=== PATIENT | male | born 1980 | race Caucasian/White ===

== ENCOUNTER 2017-03-25 07:24 | Emergency (ER) | payer OTHER ==
[~2017-03-25] VITALS: Ht 190.5 cm; Wt 136.1 kg
[~2017-03-25 07:24] MED LIST: ACCUNEB SO1.25 MG/1; AMBIEN 10 MG TA10 MG PO; ASPIR 8181 MG PO; CYCLOBENZAPRINE5 MG PO; IBUPROFEN 600600 M1 PO; LEXAPRO20 MG PO; LISINOPRIL10 MG PO; NOHOMEMEDICATIONS; NORCO 5-325 TA1 EACH PO; PHENERGAN 25 MG25 M1 PO; PREDNISONE 20 M20 M1 PO; PREDNISONE50 MG PO; PREVACID 30MG C30 M1 PO; PRILOSEC40 MG PO; PRINIVIL20 MG PO; SINGULAIR 10 MG10 M1 PO; TOPROL XL25 MG PO; TRAZODONE HCL100 MG PO; TRIAMCINOLONE A15 G1 TP; ULTRAM 50MG TAB50 MG PO; VENTOLIN HFA 1818 GM INH; ZANTAC 150MG T150 M1 PO; ZANTAC 150MG T150 MG PO; ZOFRAN ODT4 MG PO; ZPAK PO
[2017-03-25 07:40] VITALS: BP 140/90
== END 2017-03-25 08:01 | disposition home or self-care (01) ==
LOC: ER 07:24
DX: M77.11 Lateral epicondylitis, right elbow (principal); I10 Essential (primary) hypertension; J45.909 Unspecified asthma, uncomplicated; F17.210 Nicotine dependence, cigarettes, uncomplicated; Z88.5 Allergy status to narcotic agent

== ENCOUNTER 2018-02-27 05:28 | Day surgery (SDC) | payer OTHER ==
[~2018-02-27] VITALS: Ht 190.5 cm; Wt 135.2 kg
--- NOTE | ~2018-02-27 | O ---
[facility] [place] [address] OPERATIVE REPORT Name: ELMER GARZA Room #: 150-4 [facility] M.R.#: [id number] Admission: 02/27/18 Attend Phys: Kaushik Chavis MD Discharge: Date of : 80 Report #: [id number] THIS REPORT FOR: //name// CC: Anais Chavis DATE OF SERVICE: 02/27/2018 PREOPERATIVE DIAGNOSES: Deviated nasal septum with nasal airway obstruction, chronic tonsillitis with tonsillar hypertrophy, obstructive sleep apnea. POSTOPERATIVE DIAGNOSES: Deviated nasal septum with nasal airway obstruction, chronic tonsillitis with tonsillar hypertrophy, obstructive sleep apnea. OPERATIVE PROCEDURE: Nasal septoplasty and tonsillectomy. ANESTHESIA: General endotracheal. DESCRIPTION OF PROCEDURE: The patient was taken to the operating room and placed in supine position. General anesthesia was induced by endotracheal intubation. Once adequate general anesthesia was obtained, local nasal anesthesia was induced by submucoperichondrial injection of 1% lidocaine with 1:100,000 epinephrine and topical application of cocaine solution. The patient was then draped in a sterile manner. The patient had a nasal septal deviation anteriorly to the right and into the inferior meatus on the left. A hemitransfixion incision was placed on the right side of the nose and the mucoperichondrium and mucoperiosteum elevated off the septum. The cartilage was incised in front of the bony cartilaginous junction, and a portion of cartilage and bone was removed from the midportion of the septum. There was a large septal spur along the floor in the inferior meatus on the left side consisting of hypertrophic cartilage and a fracture of the maxillary crest. The cartilage was removed as a long strip, and the maxillary crest was infractured. After these maneuvers, the septum sat more in the midline. A hemitransfixion incision was then closed with 4-0 chromic suture and a 4-0 plain mattress suture was placed as well. A Miguel-John mouth gag was placed in the patient's mouth and tongue was deviated upward. The right tonsil was grasped and deviated towards midline. An incision was placed in the anterior tonsillar pillar using the Bovie electrocautery and a plane between tonsillar capsule and tonsillar fossa was established. Dissection was carried out in this plane using the Bovie and hemostasis was achieved during the dissection. Dissection was carried out from superior to inferior. The inferior pole was incised. The posterior tonsillar mucosa was incised. The tonsil was removed and sent to pathology. The left tonsil was removed in exactly the same manner. The area was then irrigated with normal saline. Hemostasis was verified in the tonsillar beds. The mouth gag was removed. The patient tolerated the procedure well. Blood loss of both [address] [address] OPERATIVE REPORT Name: ELMER GARZA Room #: 150-4 [facility] M.R.#: [id number] Admission: 02/27/18 Attend Phys: Kaushik Chavis MD Discharge: Date of : 80 Report #: [id number] procedures was approximately 20 mL. The patient was then awoken and taken to the recovery room in stable condition for postoperative monitoring. By: [id number] Kaushik Chavis MD /nt
--- NOTE | ~2018-02-27 | EKG ---
[address] [place] [address] ELECTROCARDIOGRAM REPORT Name: ELMER GARZA Room #: 150-4 [facility]..#: [id number] Admission: 02/27/18 Attend Phys: Kaushik Chavis MD Discharge: Date of : 80 Report #: [id number] THIS REPORT FOR: //name// [facility] Test Date: 2018-02-27 Test Time: 06:30:48 Pat Name: ELMER GARZA Department: Room: 150 4 Gender: M Strategy Manager: ROSALVA : 1980 Requested By: Kaushik Chavis Order Number: [id number] MD: Dennis Capellan Measurements Intervals [place] Rate: 64 P: 43 DC: 146 QRS: 37 QRSD: 111 T: 38 QT: 403 QTc: 416 Interpretive Statements Sinus rhythm RSR' in V1 or V2, right VCD Compared to ECG 12/01/2014 05:21:18 no significant change was found Electronically Signed On 02-27-2018 7:56:01 CDT by Dennis Capellan [email or web address] <ELECTRONICALLY SIGNED> By: Dennis Capellan MD, [facility] 02/27/18 0756 D: [id number] 9 Dennis Capellan MD, [facility] /EPI
--- NOTE | ~2018-02-27 | PATH ---
[facility] [address] [address] [place] [address] PATHOLOGY RPT PROCEDURE Name: ELMER BLANCAS Room #: DEP [facility] M.R.#: [id number] Admission: 02/27/18 Date of : 80 Discharge: 02/27/18 Report #: [id number] Path Case #: [id number] [facility] Accession Number: [id number] . 01 Material submitted: . PART A: RIGHT TONISL PART B: LEFT TONSIL . 01 Clinical history: . Deviated septum, hypertrophy of tonsils . 02 Diagnosis: A. Tonsil, right: - Tonsillar tissue with lymphoid hyperplasia. . B. Tonsil, left: - Tonsillar tissue with lymphoid hyperplasia. . (MAP:[facility]; 02/28/2018) [facility]/02/28/2018 . 02 Electronically signed: . Dhiraj Pierce MD, Pathologist NPI- [id number] . 01 Gross description: . A.Received in formalin labeled "Elmer Blancas, right tonsil," is a tonsil measuring 3.4 x 1.9 x 1.9 cm in maximum dimensions. The mucosal surfaces are tinajero with the typical crypts identified. Sectioning reveals lobulated, homogenous light tinajero cut surfaces with no grossly identifiable lesions. Reports Developer tissue is submitted in cassette A1. . B.Received in formalin labeled "Elmer Blancas, left tonsil," is a tonsil measuring 3.4 x 1.7 x 2.0 cm in maximum dimensions. The mucosal surfaces are tinajero with the typical crypts identified. Sectioning reveals lobulated, homogenous light tinajero cut surfaces with no grossly identifiable lesions. Reports Developer tissue is submitted in cassette B1. ([facility]; 02/27/2018) TOB/TOB . 02 Pathologist provided ICD-10: J35.1 . 02 CPT . 800279, 340952 Performed at: [address] [address] PATHOLOGY RPT PROCEDURE Name: ELMER BLANCAS Room #: DEP [facility]..#: [id number] Admission: 02/27/18 Date of : 80 Discharge: 02/27/18 Report #: [id number] Path Case #: [id number] [address] [id number] MD Tarun Elizondo MD Phone: [phone] Performed at: [address] [id number] MD Rachel Kenney MD Phone: [phone]
--- NOTE | ~2018-02-27 | H ---
[facility] [place] [address] HISTORY AND PHYSICAL Name: ELMER GARZA Room #: 150-4 [facility] M.R.#: [id number] Admission: 02/27/18 Attend Phys: Kaushik Chavis MD Discharge: Date of : 80 Report #: [id number] THIS REPORT FOR: //name// CC: Anais Chavis DATE OF PROCEDURE: 02/27. HISTORY OF PRESENT ILLNESS: The patient has had problems with sinus infections and difficulty breathing through his nose. He has symptoms of obstructive sleep apnea and has had them for quite some time. He was tried on Flonase and antibiotics, and he continued to have problems with enlarged tonsils and difficulty breathing through his nose. PAST MEDICAL HISTORY: Otherwise, significant for asthma, diabetes and high blood pressure. MEDICATIONS: Include metformin, Januvia, Xanax, metoprolol, lisinopril. ALLERGIES: HE IS ALLERGIC TO VICODIN. PHYSICAL EXAMINATION: He has a deviated nasal septum to the right side, in the mid portion and anteriorly to the left. He has 3+ enlarged tonsils with blockage of the posterior pharynx. IMPRESSION: Obstructive sleep apnea with tonsil hypertrophy and deviated nasal septum. PLAN: Tonsillectomy and nasal septoplasty. <ELECTRONICALLY SIGNED> By: Kaushik Chavis MD 02/27/18 0745 [id number] Kaushik Chavis MD /marlene
[~2018-02-27 05:28] MED LIST changes: +ACCUNEB SO1.25 MG/1 NASAL; +AMARYL4 MG PO; +JANUVIA25 MG PO; +METFORMIN HCL500 MG PO
[2018-02-27 06:55] VITALS: BP 101/52
[2018-02-27 09:44] VITALS: BP 101/52
== END 2018-02-27 12:00 | disposition home or self-care (01) ==
LOC: TBA 05:28 → OR 05:28
DX: J34.2 Deviated nasal septum (principal); J35.01 Chronic tonsillitis; J34.89 Other specified disorders of nose and nasal sinuses; G47.33 Obstructive sleep apnea (adult) (pediatric); I10 Essential (primary) hypertension; E11.9 Type 2 diabetes mellitus without complications; K21.9 Gastro-esophageal reflux disease without esophagitis; J45.909 Unspecified asthma, uncomplicated; F17.210 Nicotine dependence, cigarettes, uncomplicated; Z98.890 Other specified postprocedural states; Z79.899 Other long term (current) drug therapy
CPT/HCPCS: 50010; 50101; 50386; 50398; 56524; 56528; 62110; 62900; 64032; 70005